=== PATIENT | female | born 1980 | race Caucasian/White ===

== ENCOUNTER 2016-07-16 09:12 | Emergency (ER) | payer OTHER ==
[2016-07-16 09:27] VITALS: BP 132/74; PULSE 81; RESP 18; TEMP 98.4; O2SAT 98
--- NOTE | 2016-07-16 09:50 | EDPHY ---
H & P Time Seen by Provider: 07/16/16 09:24 HPI/ROS: CHIEF COMPLAINT: [ ] History by patient HISTORY OF PRESENT ILLNESS: 35-year-old otherwise healthy woman presents complaining of pain on the right side of her back and in her right buttock after slipping and falling down the stairs yesterday. She was wearing socks on slippery hardwood stairs. She did not hit her head or get knocked out. She denies any neck pain or injury. Denies any focal numbness or weakness. She denies any difficulty with bowel or bladder control. The pain in her right side of her back is constant achy and she gets intermittent sharp pains in her right buttock. REVIEW OF SYSTEMS: As in HPI, and all other systems reviewed and are negative Smoking Status: Never smoked Physical Exam: General Appearance: Alert and no distress. Eyes: Pupils equal and round no injection. Musculoskeletal: Neck is supple and nontender. Back: No bony tenderness, positive ecchymoses and tenderness on right mid back , positive ecchymoses and tenderness right buttock Extremities: Full range of motion of bilateral hips, knees, ankles, no bony tenderness, DP pulses 2+ and equal bilaterally, distal sensation intact, normal gait. Skin: No rashes or lesions except as described above. Neurologic: Awake alert oriented x3, normal gait, no pronator drift, strength 5 /5 equal bilaterally lower extremities, DTRs intact Constitutional: Initial Vital Signs Temperature (C) 36.9 C 07/16/16 09:24 Heart Rate 81 07/16/16 09:24 Respiratory Rate 18 07/16/16 09:24 Blood Pressure 132/74 H 07/16/16 09:24 O2 Sat (%) 98 07/16/16 09:24 O2 Delivery Mode Room Air Allergies/Adverse Reactions: No Known Allergies Allergy (Unverified 07/16/16 09:23) Home Medications: Medication Instructions Recorded Cyclobenzaprine [Flexeril 10 MG 10 mg PO TID #0 tab 07/16/16 (*)] Cymbalta 07/16/16 Ritalin 10mg (*) 07/16/16 MDM/Departure - Depart Disposition: Home, Routine, Self-Care Clinical Impression: Contusion of back Qualifiers: Encounter type: initial encounter Laterality: right Qualified Code(s): S20.221A - Contusion of right back wall of thorax, initial encounter Contusion of buttock Qualifiers: Encounter type: initial encounter Qualified Code(s): S30.0XXA - Contusion of lower back and pelvis, initial encounter Condition: Good Instructions: Contusion in Adults (ED) Additional Instructions: You were seen by Dr. Anny Alatorre today. Ice your back and buttock. Take ibuprofen 600 mg 4 times a day and he may add Tylenol a 1000 mg every 6 hours if needed. Take Flexeril as needed for muscle spasm and sleep. Return for any worsening or new concerns. Prescriptions: Cyclobenzaprine [Flexeril 10 MG (*)] 10 mg PO TID #0 tab Referrals: [facility] [Other] - As per Instructions
== END 2016-07-16 10:03 | disposition home or self-care (01) ==
LOC: CED 09:12
DX: S20.221A Contusion of right back wall of thorax, initial encounter (principal); S30.0XXA Contusion of lower back and pelvis, initial encounter; W10.9XXA Fall (on) (from) unspecified stairs and steps, initial encounter

== ENCOUNTER → 2017-02-24 | Outpatient (CLI) | payer OTHER | LOC: FIMAGING 10:27 | PROVIDERS: ATTEND Family Medicine | DX: Z12.31 Encounter for screening mammogram for malignant neoplasm of breast (principal) ==

== ENCOUNTER → 2018-05-21 | Outpatient (CLI) | payer OTHER | LOC: BRMIMAGING 08:24 | PROVIDERS: ATTEND Family Medicine | DX: Z12.31 Encounter for screening mammogram for malignant neoplasm of breast (principal); Z80.7 Family history of other malignant neoplasms of lymphoid, hematopoietic and related tissues; R94.6 Abnormal results of thyroid function studies; Z80.3 Family history of malignant neoplasm of breast ==